=== PATIENT | female | born 1950 | race Hispanic/Latino ===

== ENCOUNTER → 2025-04-10 | Day surgery (SDC) | payer MEDICARE ==
[2025-04-04 14:29] LABS: BASOPHILS % 1.0 % (0.0-1.0); EOSINOPHILS % 2.3 % (0.0-6.0); LYMPHOCYTES % 29.2 % (18.0-39.1); MONOCYTES % 7.8 % (4.4-11.3); NEUTROPHILS % 59.4 % (38.7-80.0); RED CELL DISTRIBUTION WIDTH 13.6 % (11.7-14.4)
[2025-04-04 14:57] LABS: EST GLOMERULAR FILTRATION RATE 82.0 ML/MIN (>=60)
[~2025-04-10] MED LIST: DEXAMETHASONE SOD PHOS INJ 4 MG/ML SDV ONE; GATIFLOXACIN(OPTH) 5 ML LIQD ONE; GLIMEPIRIDE2 MG PO; GLYCOPYRROLATE INJ 0.2 MG/ML VIAL ONE; IBUPROFEN800 MG PO; LATANOPROST2.5 ML OU; LIDOCAINE HCL 2% LOCAL INJ 5 ML SDV VIAL INJ ONE; METFORMIN HCL500 MG PO; NEOSTIGMINE 1 MG/ML 10ML VIAL ONE; ONDANSETRON HCL INJ 2MG/ML 2ML 2 MG/ML VIAL ONE; PROPOFOL IV EMULSION 10 MG/ML 20 ML VIAL ONE; TIMOPTIC 0.5%1 EACH OU; [UNRECOGNIZED DRUG - OTHER] PO
[2025-04-10] MEDS: CYCLOPENTOLATE HCL 2% OPTH SOLN 2 ML BTL OP ONE (10:35)
[2025-04-10] MEDS: TETRACAINE HCL 0.5% OPTH SOLN 4 ML BTL ONE (10:35)
[2025-04-10] MEDS: PHENYLEPHRINE HCL 2 ML DROPS ONE (10:36)
[2025-04-10] MEDS: LACTATED RINGER'S 1,000 ML ONE (10:36)
[2025-04-10 12:45] VITALS: TEMP 97.6
[2025-04-10 13:15] VITALS: BP 150/61; PULSE 62; RESP 15; O2SAT 98
== END | disposition home or self-care (01) ==
LOC: OR 08:30
PROVIDERS: ATTEND Ophthalmology
DX: H25.12 Age-related nuclear cataract, left eye (principal); E11.9 Type 2 diabetes mellitus without complications; Z01.810 Encounter for preprocedural cardiovascular examination; Z01.812 Encounter for preprocedural laboratory examination; Z79.84 Long term (current) use of oral hypoglycemic drugs; Z79.1 Long term (current) use of non-steroidal anti-inflammatories (NSAID)
CPT/HCPCS: 36415 ×2; 66984; 80048; 82948; 85025; 93041; J1100; J2003; J2405; J2704; J7121; V2632; J2710